=== PATIENT | male | born 1970 | race Caucasian/White ===

== ENCOUNTER 2020-11-28 22:26 | Emergency (ER) | payer OTHER ==
[2020-11-28 23:06] LABS: Absolute Lymphocytes (CBC) 2.6 K/uL (0.7-4.9); Basophils % 0.5 % (0-1.3); Lymphocytes % 21.9 % (15.3-44.8); MPV 8.7 fL (7.6-11.3); RBC Red Blood Cell Count 4.36 M/uL (4.33-5.43)
[2020-11-28 23:07] LABS: Protime INR 1.09
[2020-11-28] MEDS ORDERED: NA CHLORIDE 0.9% 1,000 ML ONE (23:15)
[2020-11-28] MEDS ORDERED: FENTANYL CITR 100 MCG/2 ML ONE (23:15)
[2020-11-28 23:24] LABS: ALT/SGPT 29 U/L (12-78); AST/SGOT 18 U/L (15-37); Albumin 3.8 g/dL (3.4-5.0); Alkaline Phosphatase 46 U/L (45-117); BUN Blood Urea Nitrogen 16 mg/dL (7-18); Bicarbonate 24 mmol/L (21-32); Bilirubin Direct 0.1 mg/dL (0-0.2); Bilirubin Total 0.5 mg/dL (0.2-1.0); Glucose Level 129 mg/dL (74-106); Magnesium 2.1 mg/dL (1.8-2.4); NT PRO-BNP 23 pg/mL (<125); Potassium 3.4 mmol/L (3.5-5.1); Protein, Total 6.9 g/dL (6.4-8.2); Sodium Level 142 mmol/L (136-145); Troponin (Emerg Dept Use Only) < 0.02 ng/mL (0.0-0.045)
[2020-11-29 00:10] LABS: Urine Blood Negative (Negative); Urine Glucose Negative (Negative); Urine Protein Negative (Negative); Urine Specific Gravity >=1.030 (1.005-1.030); Urine pH 5.5 (5.0-7.0)
--- NOTE | 2020-11-29 01:22 | EDPHYS ---
Physician Documentation [facility] Name: Silvio Andrade Age: 50 yrs Sex: Male : 1970 Arrival Date: 11/28/2020 Time: 22:31 Bed 25 Private MD: ED Physician Hilton Van HPI: 11/28 22:45 This 50 yrs old Male presents to ER via EMS with complaints of Pain. cp 22:45 The patient or guardian reports chest pain that is located primarily in the left cp shoulder. 22:45 Associated signs and symptoms: Pertinent positives: neck pain and back pain and left cp ankle pain. 22:45 The chest pain is described as aching. Patient reports he was sitting on ground and cp unable to stand due to pain in left ankle so he called EMS. Historical: - Allergies: 22:52 No Known Allergies; wr - Immunization history:: nono. - Social history:: Smoking status: Patient reports the use of cigarette tobacco products, smokes one-half pack cigarettes per day. ROS: 22:50 Constitutional: Negative for body aches, chills, fever, poor PO intake. cp 22:50 Eyes: Negative for injury, pain, redness, and discharge. cp 22:50 Neck: Positive for pain with movement, pain at rest. 22:50 Cardiovascular: Negative for chest pain, edema, palpitations. 22:50 Respiratory: Negative for cough, shortness of breath, wheezing. 22:50 Abdomen/GI: Negative for abdominal pain, nausea, vomiting, and diarrhea. 22:50 Back: Positive for pain at rest, pain with movement. 22:50 MS/extremity: Positive for pain, of the left shoulder and left ankle, Negative for injury or acute deformity, decreased range of motion. 22:50 Neuro: Negative for altered mental status, headache, loss of consciousness, numbness, syncope, weakness. 22:50 All other systems are negative. Exam: 22:55 Constitutional: The patient appears in no acute distress, alert, awake, cp non-diaphoretic, non-toxic, well developed, well nourished. 22:55 Head/Face: Normocephalic, atraumatic. cp 22:55 Eyes: Periorbital structures: appear normal, Pupils: equal, round, and reactive to light and accomodation, Extraocular movements: intact throughout, Conjunctiva: normal, no exudate, no injection, Sclera: no appreciated abnormality, Lids and lashes: appear normal, bilaterally. 22:55 ENT: External ear(s): are unremarkable, Nose: is normal, Mouth: Lips: dry, Oral mucosa: moist, Posterior pharynx: Airway: no evidence of obstruction, patent. 22:55 Neck: ROM/movement: is normal, is supple, no range of motions limitations, pain, that is mild, with any movement. 22:55 Chest/axilla: Inspection: normal, Palpation: is normal, no crepitus, no tenderness. 22:55 Cardiovascular: Rate: normal, Rhythm: regular, Edema: is not appreciated, JVD: is not appreciated. 22:55 Respiratory: the patient does not display signs of respiratory distress, Respirations: normal, no use of accessory muscles, no retractions, labored breathing, is not present, Breath sounds: are clear throughout, no decreased breath sounds, no stridor, no wheezing. 22:55 Abdomen/GI: Inspection: abdomen appears normal, Bowel sounds: active, all quadrants, Palpation: abdomen is soft and non-tender, in all quadrants. 22:55 Back: pain, that is moderate, of the mid back area, ROM is painful, with all movement, Straight leg raises: of both lower extremities does not illicit pain. 22:55 Musculoskeletal/extremity: Extremities: grossly normal except: noted in the left ankle: pain, tenderness, There is no evidence of decreased ROM, deformity, swelling, Pulses: noted to be 2+ in the right radial artery, right dorsalis pedis artery, left radial artery and left dorsalis pedis artery. 22:55 Skin: cellulitis, is not appreciated, no rash present. 22:55 Neuro: Orientation: to person, place \T\ time. Mentation: is normal. 23:17 ECG was reviewed by the Attending Physician. cp Vital Signs: 22:42 BP 114 / 80; Pulse 72; Resp 20; Temp 98.8; Pulse Ox 94% ; Weight 95.25 kg; Height 6 ft. wr (182.88 cm); Pain 10/10; 22:56 BP 114 / 80; Pulse 72; Resp 20; Temp 98.8; Pulse Ox 94% ; Weight 95.25 kg; Height 6 ft. wr (182.88 cm); Pain 10/10; 11/29 00:40 BP 120 / 86; Pulse 74; Resp 20; Temp 98.1; Pulse Ox 97% ; wr 01:27 BP 109 / 75; Pulse 68; Resp 14; Temp 98.5(O); Pulse Ox 100% on R/A; Pain 3/10; df1 11/28 22:56 Body Mass Index 28.48 (95.25 kg, 182.88 cm) wr MDM: 11/28 22:33 Patient medically screened. cp 23:00 Differential diagnosis: abnormal EKG, acute myocardial infarction, chronic pain, cp arrythmia, dehydration, renal failure. 11/29 01:22 Data reviewed: vital signs, nurses notes, lab test result(s), EKG, radiologic studies, cp plain films. 01:22 Test interpretation: by ED physician or midlevel provider: ECG, plain radiologic cp studies. Counseling: I had a detailed discussion with the patient and/or guardian regarding: the historical points, exam findings, and any diagnostic results supporting the discharge/admit diagnosis, lab results, radiology results, to return to the emergency department if symptoms worsen or persist or if there are any questions or concerns that arise at home. Response to treatment: the patient's symptoms have markedly improved after treatment, and as a result, I will discharge patient. 11/28 22:33 Order name: Basic Metabolic Panel; Complete Time: 23:45 cp 11/28 23:45 Interpretation: Normal except: K 3.4; CL 110; GLUC 129; GFR 81; CA 8.4. cp 11/28 22:33 Order name: CBC with Diff; Complete Time: 23:45 cp 11/28 23:45 Interpretation: Normal except: WBC 11.70; MN% 12.8. cp 11/28 22:33 Order name: LFT's; Complete Time: 23:45 cp 11/28 22:33 Order name: Magnesium; Complete Time: 23:45 cp 11/28 22:33 Order name: NT PRO-BNP; Complete Time: 23:45 cp 11/28 22:33 Order name: PT-INR; Complete Time: 23:45 cp 11/28 22:33 Order name: Troponin (emerg Dept Use Only); Complete Time: 23:45 cp 11/28 22:33 Order name: XRAY Chest (1 view) cp 11/28 22:42 Order name: XRAY Ankle LEFT 3 view 11/28 23:46 Order name: Urine Microscopic Only; Complete Time: 01:32 11/29 00:10 Order name: Urine Dipstick-Ancillary; Complete Time: 01:07 [facility] 11/29 01:07 Interpretation: Reviewed. 11/29 01:29 Order name: Urine Culture EDMN 11/28 22:33 Order name: EKG; Complete Time: 22:34 11/28 22:33 Order name: Cardiac monitoring; Complete Time: 23:00 11/28 22:33 Order name: EKG - Nurse/Tech 11/28 22:33 Order name: IV Saline Lock; Complete Time: 23:00 11/28 22:33 Order name: Labs collected and sent; Complete Time: 23:07 11/28 22:33 Order name: O2 Per Protocol; Complete Time: 23:07 11/28 22:33 Order name: O2 Sat Monitoring; Complete Time: 23:01 11/28 23:46 Order name: Urine Dipstick-Ancillary (obtain specimen); Complete Time: 00:25 11/29 01:07 Order name: Aircast Ankle Splint; Complete Time: 01:28 cp EC/23 23:17 Rate is 68 beats/min. Rhythm is regular. [place] interval is normal. QRS interval is normal. cp QT interval is normal. Interpreted by me. Reviewed by me. Administered Medications: 22:56 Drug: NS 0.9% 1000 ml Route: IV; Rate: 1 bolus; Site: right antecubital; sj1 22:56 Drug: fentaNYL (PF) 25 mcg Route: IVP; Site: right hand; sj1 11/29 01:28 Follow up: Response: Pain is decreased df1 01:47 Drug: Rocephin (cefTRIAXone) 1 grams Route: IM; Site: left deltoid; df1 01:47 Drug: Ibuprofen 800 mg Route: PO; df1 Disposition: 05:07 Co-signature as Attending Physician, Hilton Van MD. [email or web address] Disposition Summary: 11/29/20 01:22 Discharge Ordered Location: Home cp Problem: new cp Symptoms: have improved cp Condition: Stable cp Diagnosis - Pain in left shoulder cp - Dorsalgia, unspecified cp - Cervicalgia cp - Pain in left ankle and joints of left foot cp - UTI/ Urinary tract infection, site not specified cp Followup: cp - With: Private Physician - When: 2 - 3 days - Reason: Recheck today's complaints Discharge Instructions: - Discharge Summary Sheet cp - Acute Back Pain, Adult cp - Shoulder Pain cp - Shoulder Range of Motion Exercises cp - Ankle Pain cp - Urinary Tract Infection, Adult cp - Neck Exercises cp - Back Exercises cp Forms: - Medication Reconciliation Form cp - Thank You Letter cp - Antibiotic Education cp - Prescription Opioid Use cp Prescriptions: - Diclofenac Sodium 75 mg Oral tablet,delayed release (DR/EC) - take 1 tablet by ORAL route 2 times per day; 20 tablet; Refills: 0, Product cp Selection Permitted - Cipro 500 mg Oral Tablet - take 1 tablet by ORAL route every 12 hours for 7 days; 14 tablet; Refills: 0, cp Product Selection Permitted Signatures: Dispatcher [employer] EDMS Ji Cheung PA PA cp Holmes, Maurice, MD MD [email or web address] Sybil Pantoja Dawn df1 Su Joshi RN RN sj1 Corrections: (The following items were deleted from the chart) 11/28 22:53 22:49 Allergies: Schizonepeta; [facility] 23:08 22:33 MAGNESIUM+C.LAB.BRZ ordered. EDMS EDMS
--- NOTE | 2020-11-29 01:22 | ER ---
Nurse's Notes [facility] Name: Silvio Andrade Age: 50 yrs Sex: Male : 1970 Arrival Date: 11/28/2020 Time: 22:31 Bed 25 Private MD: Diagnosis: Pain in left shoulder;Dorsalgia, unspecified;Cervicalgia;Pain in left ankle and joints of left foot;UTI/ Urinary tract infection, site not specified Presentation: 11/28 22:31 Chief complaint: Patient states: C/o Left Ankle pain,Back Pain Shoulder pain ,and Neck wr Pain. Patient have History of Schizophrenia .Patient is homeless and walk a long way before calling 911. Coronavirus screen: At this time, the client does not indicate any symptoms associated with coronavirus-19. 22:31 Method Of Arrival: EMS wr 22:42 Ebola Screen: No symptoms or risks identified at this time. wr 22:42 Initial Sepsis Screen: Does the patient meet any 2 criteria?. wr 22:44 Initial Sepsis Screen: Does the patient meet any 2 criteria?. wr 22:44 Initial Sepsis Screen: Does the patient meet any 2 criteria? No. Patient's initial wr sepsis screen is negative. 22:45 Risk Assessment: Do you want to hurt yourself or someone else? Patient reports no wr desire to harm self or others. 22:45 Initial Sepsis Screen: Does the patient have a suspected source of infection? No. wr Patient's initial sepsis screen is negative. 22:45 Onset of symptoms was November 28, 2099. wr 22:45 Acuity: GLADYS 4 wr Triage Assessment: 22:53 General: Appears unkempt, well developed. Pain: Complains of pain in right arm, right wr foot, back of neck, posterior chest and back. 11/29 01:28 General: Behavior is calm, cooperative, appropriate for age. df1 Historical: - Allergies: 11/28 22:52 No Known Allergies; wr - Immunization history:: nono. - Social history:: Smoking status: Patient reports the use of cigarette tobacco products, smokes one-half pack cigarettes per day. Screenin:58 Abuse screen: Denies. Nutritional screening: No deficits noted. wr 22:58 Tuberculosis screening: No symptoms or risk factors identified. wr 22:58 Fall Risk None identified. wr Assessment: 22:58 General: Appears uncomfortable, unkempt, well developed. wr Vital Signs: 22:42 BP 114 / 80; Pulse 72; Resp 20; Temp 98.8; Pulse Ox 94% ; Weight 95.25 kg; Height 6 ft. wr (182.88 cm); Pain 10/10; 22:56 BP 114 / 80; Pulse 72; Resp 20; Temp 98.8; Pulse Ox 94% ; Weight 95.25 kg; Height 6 ft. wr (182.88 cm); Pain 10/10; 11/29 00:40 BP 120 / 86; Pulse 74; Resp 20; Temp 98.1; Pulse Ox 97% ; wr 01:27 BP 109 / 75; Pulse 68; Resp 14; Temp 98.5(O); Pulse Ox 100% on R/A; Pain 3/10; df1 11/28 22:56 Body Mass Index 28.48 (95.25 kg, 182.88 cm) wr ED Course: 11/28 22:31 Patient arrived in ED. tt3 22:32 Ji Cheung PA is PHCP. cp 22:32 Hilton Van MD is Attending Physician. cp 22:49 Triage completed. wr 22:57 Arm band placed on. wr 22:57 Inserted saline lock: 20 gauge in right hand, using aseptic technique. wr 23:00 XRAY Ankle LEFT 3 view Sent. wr 23:00 XRAY Chest (1 view) Sent. wr 23:01 XRAY Chest (1 view) In Process Unspecified. EDMS 23:02 XRAY Ankle LEFT 3 view In Process Unspecified. EDMS 23:07 Basic Metabolic Panel Sent. wr 23:07 CBC with Diff Sent. wr 23:07 LFT's Sent. wr 23:08 NT PRO-BNP Sent. wr 23:09 Troponin (emerg Dept Use Only) Sent. wr 11/29 01:27 No provider procedures requiring assistance completed. IV discontinued, intact, df1 bleeding controlled, No redness/swelling at site. Pressure dressing applied. 01:28 Patient has correct armband on for positive identification. df1 01:48 Air cast applied to left ankle. MSP's intact. Pt states understanding of use. No df1 further questions voiced. Administered Medications: 11/28 22:56 Drug: NS 0.9% 1000 ml Route: IV; Rate: 1 bolus; Site: right antecubital; sj1 22:56 Drug: fentaNYL (PF) 25 mcg Route: IVP; Site: right hand; sj1 11/29 01:28 Follow up: Response: Pain is decreased df1 01:47 Drug: Rocephin (cefTRIAXone) 1 grams Route: IM; Site: left deltoid; df1 01:47 Drug: Ibuprofen 800 mg Route: PO; df1 Outcome: 01:22 Discharge ordered by MD. cp 01:28 Discharged to home ambulatory. df1 01:28 Condition: good 01:28 Discharge instructions given to patient, Instructed on discharge instructions, follow up and referral plans. medication usage, Prescriptions given X 1. 01:33 Patient left the ED. df1 01:50 Patient left the ED. df1 Signatures: Dispatcher [employer] EDMS Ji Cheung PA PA cp Trim, Tyler tt3 Sybil Pantoja Joanie Vizcarra df1 Su Joshi RN RN sj1 Corrections: (The following items were deleted from the chart) 11/28 22:53 22:49 Allergies: Schizonepeta; [facility] 23:08 23:07 MAGNESIUM+C.LAB.LASHA drawn and sent. EDMS
[2020-11-29 01:28] LABS: Urine Bacteria 20-50 /HPF (NONE SEEN); Urine Mucus 2+ /HPF (NONE SEEN)
[2020-11-29] MEDS ORDERED: CEFTRIAXONE 1000 MG/VIAL ONE (01:58)
[2020-11-29] MEDS ORDERED: IBUPROFEN 400 MG TAB ONE (01:58)
[2020-11-29 04:09] VITALS: BP 109/75; TEMP 98.5; O2SAT 100
--- NOTE | 2020-11-29 07:40 | RAD REPORT ---
EXAM DESCRIPTION: Richard Single View11/28/2020 11:01 pm CLINICAL HISTORY: Shoulder pain COMPARISON: none FINDINGS: The lungs appear clear of acute infiltrate. The heart is normal size IMPRESSION: No acute abnormalities displayed
--- NOTE | 2020-11-29 07:41 | RAD REPORT ---
EXAM DESCRIPTION: RAD - Ankle Left 3 View -11/28/2020 11:01 pm CLINICAL HISTORY: Left ankle pain FINDINGS: No fracture or dislocation is seen. Osteoarthritis involves the ankle consisting joint space narrowing and osteophytes. Calcaneal spurs are present
== END 2020-11-29 01:50 | disposition home or self-care (01) ==
LOC: ER 22:26
DX: M25.572 Pain in left ankle and joints of left foot (principal); M54.2 Cervicalgia; M54.9 Dorsalgia, unspecified; N39.0 Urinary tract infection, site not specified; F17.210 Nicotine dependence, cigarettes, uncomplicated
CPT/HCPCS: 93005; 87088; 85025; 87086; 80048; 36415; 83735; 85610; 80076; 84484; 83880; 71045; 73610; 96372; 96374; 99284; J3010; J7030; 81003; 81015